=== PATIENT | male | born 1980 | race Caucasian/White ===

== ENCOUNTER 2016-09-18 01:36 | Emergency (ER) | payer MEDICAID ==
[~2016-09-18] VITALS: Ht 182.9 cm; Wt 99.8 kg
[2016-09-18 04:11] VITALS: BP 135/77
== END 2016-09-18 04:11 | disposition home or self-care (01) ==
LOC: ED 01:36
DX: M25.561 Pain in right knee (principal); G89.29 Other chronic pain; Z88.0 Allergy status to penicillin